=== PATIENT | female | born 1945 | race Caucasian/White ===

== ENCOUNTER 2021-04-22 19:30 | Emergency (ER) | payer MEDICARE, BC ==
[2021-04-22 19:39] VITALS: BP 160/80; PULSE 75
[2021-04-22] MEDS ORDERED: Silver Nitrate Applicator Each TOP ONE (19:47)
--- NOTE | 2021-04-22 19:53 | EDM.PDOC ---
ED HPI GENERAL MEDICAL PROBLEM - General Chief Complaint: ENT Problem Stated Complaint: NOSE BLEED Time Seen by Provider: 04/22/21 19:40 Source of Information: Reports: Patient, Family ( at bedside) History Limitations: Reports: No Limitations - History of Present Illness INITIAL COMMENTS - FREE TEXT/NARRATIVE: Suzanne is a 76 year old female whom presents to ER with left sided nose bleeding after blowing her nose this evening result in bleeding 2 hours age which has not stopped. Suzanne denies injury, trauma or blood thinner. Suzanne feels the bleeding is from the anterior inferior medial aspect of nasal opening. Suzanne denies any other acute illness or concerns at this time. - Related Data Allergies Allergy/AdvReac Type Severity Reaction Status Date / Time No Known Allergies Allergy Verified 04/22/21 19:49 Home Meds: Home Meds Calcium Carbonate/Vitamin D3 [Calcium 500 mg Chewable Tablet] 500 mg PO DAILY 09/02/15 [History] Etanercept [Enbrel] 2 ml SQ Q7D 09/02/15 [History] Fish Oil/DHA/EPA [Fish Oil 1,200 MG] 1,200 mg PO BID 09/02/15 [History] Folic Acid 1 mg PO DAILY 09/02/15 [History] Hydrochlorothiazide 25 mg PO DAILY 09/02/15 [History] Levothyroxine Sodium [Synthroid] 75 mcg PO DAILY 09/02/15 [History] Losartan [Cozaar] 100 mg PO DAILY 09/02/15 [History] Methotrexate 15 mg PO Q7D 09/02/15 [History] Multivitamin with Minerals [Multiple Vitamin] 1 tab PO DAILY 09/02/15 [History] Past Medical History Cardiovascular History: Reports: Hypertension Gastrointestinal History: Reports: None [employer] History: Reports: Musculoskeletal History: Reports: RA Endocrine/Metabolic History: Reports: Hypothyroidism Dermatologic History: Reports: Benign Melanoma - Past Surgical History Dermatological Surgical History: Reports: Skin Biopsy ED ROS ENT - Review of Systems Review Of Systems: Comprehensive ROS is negative, except as noted in HPI. ED EXAM, ENT - Physical Exam Exam: See Below Exam Limited By: No Limitations General Appearance: Alert, WD/WN, No Apparent Distress Eye Exam: Bilateral Eye: Normal Inspection Ears: Normal External Exam, Hearing Grossly Normal Nose: Active Bleeding (left nares very small active bleeding anterior medial inferior septum ), Dried Blood (left greater than right nares. Small long clot in back or throat upon examination. ) Mouth/Throat: Normal Oropharynx Head: Atraumatic Neck: Normal Inspection Respiratory/Chest: No Respiratory Distress Cardiovascular: Normal Peripheral Pulses, Regular Rate, Rhythm Neurological: Alert, Oriented, CN II-XII Intact, Normal Cognition Psychiatric: Normal Affect, Normal Mood Skin: Warm, Dry, Intact, Normal Color ED ENT PROCEDURES - Epistaxis Procedure Indication: Epistaxis Recent anticoagulants/antiplatlets: No Uncontrolled HTN: No Recent septal/nasal surgery: No Site of bleeding: Left Nare, Anterior Clearing of clots: Patient Blew Nose Topical Meds: Phenylephrine Ice pack to area: No Chemical cautery: Silver Nitrate Topical Complications: No Complication Description: Nose clamp placed x 15 minutes, cautery then clamp x 15 minutes. No clamp seated then ambualted without recurrance of nose bleed. Nasal congestion reported Afrin offered. Course - Vital Signs Last Recorded V/S: Last Vital Signs Temp 35.9 C L 04/22/21 19:55 Pulse 75 04/22/21 19:55 Resp 18 04/22/21 19:55 BP 160/80 H 04/22/21 19:55 Pulse Ox 100 04/22/21 19:55 - Orders/Labs/Meds Orders: Active Orders 24 hr Category Date Time Status Oxymetazoline [Nasal Decongestant [place]] Med 04/22/21 20:39 Once 1 ml ZAIDA ONETIME ONE Meds: Medications Discontinued Medications Generic Name Dose Route Start Last Admin Trade Name Toniq PRN Reason Stop Dose Admin Silver Nitrate 1 each 04/22/21 19:47 04/22/21 19:51 Silver Nitrate Applicator Each [facility] 04/22/21 19:48 1 each ONETIME ONE Administration Departure - Departure Time of Disposition: 20:42 Disposition: Home, Self-Care 01 Clinical Impression: Anterior epistaxis - Discharge Information Instructions: Nosebleed, Adult Referrals: Yulia Wheeler PA [Primary Care Provider] - Forms: ED Department Discharge Additional Instructions: 1. Afrin 2 spray in affected nose every am and pm x 3 days for nasal congestion after nose bleed and cautery. 2. Follow information about treatment and prevention of nose bleed attached. Sepsis Event Note (ED) - Focused Exam Vital Signs: Vital Signs Temp Pulse Resp BP Pulse Ox 04/22/21 19:55 35.9 C L 75 18 160/80 H 100 04/22/21 19:38 35.9 C L 75 18 160/80 H 100 - My Orders Last 24 Hours: My Active Orders 04/22/21 20:39 Oxymetazoline [Nasal Decongestant [place]] 1 ml ZAIDA ONETIME ONE - Assessment/Plan Last 24 Hours: My Active Orders 04/22/21 20:39 Oxymetazoline [Nasal Decongestant [place]] 1 ml ZAIDA ONETIME ONE
[2021-04-22] MEDS ORDERED: Oxymetazoline 0.05% Nasal Spray 30 ML Bottle NAS ONE (20:39)
== END 2021-04-22 20:51 | disposition home or self-care (01) ==
LOC: JP.ED 19:30
DX: R04.0 Epistaxis (principal); I10 Essential (primary) hypertension; E03.9 Hypothyroidism, unspecified; Z79.899 Other long term (current) drug therapy
CPT/HCPCS: 30901; 99283; A9270